=== PATIENT | male | born 1965 | race Caucasian/White ===

== ENCOUNTER 2020-11-13 16:55 | Emergency (ER) | payer BC | END 2020-11-13 21:19 | disposition home or self-care (01) | LOC: ER1 16:55 | DX: S01.01XA Laceration without foreign body of scalp, initial encounter (principal); I10 Essential (primary) hypertension; W22.8XXA Striking against or struck by other objects, initial encounter; Y92.828 Other wilderness area as the place of occurrence of the external cause | CPT/HCPCS: 70450; 72125; 99283 ==